=== PATIENT | female | born 1960 | race African-American/Black ===

== ENCOUNTER 2016-12-15 14:35 | Emergency (ER) | payer BC ==
[~2016-12-15] VITALS: Ht 152.4 cm; Wt 63.5 kg
[2016-12-15] MEDS ORDERED: [UNRECOGNIZED DRUG - REMARK] (14:54)
[2016-12-15] MEDS ORDERED: METFORMIN HCL500 MG PO (14:54)
[2016-12-15] MEDS ORDERED: TESSALON PERLE100 MG PO (15:20)
[2016-12-15 15:31] VITALS: BP 122/86
== END 2016-12-15 15:33 | disposition home or self-care (01) ==
LOC: ER 14:35
DX: J20.9 Acute bronchitis, unspecified (principal); J11.1 Influenza due to unidentified influenza virus with other respiratory manifestations; R04.2 Hemoptysis; F10.99 Alcohol use, unspecified with unspecified alcohol-induced disorder; E11.9 Type 2 diabetes mellitus without complications; I10 Essential (primary) hypertension